=== PATIENT | male | born 2000 | race Caucasian/White ===

== ENCOUNTER 2023-02-17 20:14 | Emergency (ER) | payer OTHER ==
[~2023-02-17] VITALS: Ht 180.3 cm; Wt 71.0 kg
[2023-02-17 20:43] LABS: BASOPHILS % (AUTO) 0 % (0-10); EOSINOPHILS # (AUTO) 0.1 10^3/uL (0.0-0.3); EOSINOPHILS % (AUTO) 1 % (0-10); HEMATOCRIT 47 % (40-54); HEMOGLOBIN 16.3 g/dL (13.3-17.7); LYMPHOCYTES # (AUTO) 0.8 10^3/uL (1.0-4.0); LYMPHOCYTES % (AUTO) 6 % (12-44); MEAN CORPUSCULAR HEMOGLOBIN 30 pg (25-34); MEAN CORPUSCULAR HGB CONC 35 g/dL (32-36); MEAN CORPUSCULAR VOLUME 86 fL (80-99); MEAN PLATELET VOLUME 9.3 fL (9.0-12.2); MONOCYTES # (AUTO) 0.6 10^3/uL (0.0-1.0); MONOCYTES % (AUTO) 4 % (0-12); NEUTROPHILS # (AUTO) 12.8 10^3/uL (1.8-7.8); NEUTROPHILS % (AUTO) 89 % (42-75); PLATELET COUNT 267 10^3/uL (130-400); WHITE BLOOD COUNT 14.4 10^3/uL (4.3-11.0)
[2023-02-17] MEDS ORDERED: NS IV 1000 ML 1,000 ML IV SCH (20:45)
[2023-02-17] MEDS ORDERED: KETOROLAC INJ 30 MG/ML VIAL IVP ONE (20:45)
--- NOTE | 2023-02-17 20:48 | ED Abdominal Pain ---
General Chief Complaint: Abdominal/GI Problems Stated Complaint: ABD PAIN, LWR BACK PAIN, FEVER Nursing Triage Note: PT ARRIVED POV WITH CC OF LOWER ABD PAIN THAT STARTED THIS AM WHEN HE WOKE UP. PT STATES THAT HE WAS SEEN AT [facility] AND HAD AN ELEVATED TEMP OF 100.5. Source of Information: Patient Exam Limitations: No Limitations (TEODORA LAND) History of Present Illness Date Seen by Provider: Feb 17, 2023 Time Seen by Provider: 20:44 Initial Comments Patient is a 22-year-old male who presents to the ED abdominal pain nausea dehydration. Patient states symptoms started today early this morning. Patient patient reports left-sided abdominal pain and epigastric abdominal pain. Pain is described as sharp. Pain does not radiate. Worse with movement. Reports a temperature 100.5. Patient states he feels dehydrated. Reports chills fatigue weakness. Has not been eating or drinking as much today. Did take Tylenol earlier today after going to the clinic at [facility]. Due to the worsening abdominal pain he wanted to get evaluated. He did have 2 episodes of diarrhea without any blood or mucus. Nausea without vomiting. No history of previous abdominal surgery. Denies of any pain with urination frequent urination, dark urine. Denies chest pain short of breath cough ear pain neck p ain. No known family history of inflammatory bowel disease. (TEODORA LAND) Allergies and Home Medications Allergies Coded Allergies: No Known Drug Allergies (Unverified , 02/17/23) Patient Home Medication List Home Medication List Reviewed: Yes (TEODORA LAND) Ciprofloxacin HCl (Ciprofloxacin HCl) 500 Mg Tablet, 500 MG PO BID Prescribed by: ALISA TRUJILLO on 02/17/232152 Ondansetron (Ondansetron Odt) 4 Mg Tab.rapdis, 4 MG SL Q4H PRN for NAUSEA/V OMITING Prescribed by: ALISA TRUJILLO on 02/17/232245 Review of Systems Review of Systems Constitutional: No chills, No diaphoresis, No malaise, No weakness EENTM: No Double Vision, No Eye Pain Respiratory: Denies Cough, Denies Orthopnea Cardiovascular: Denies Chest Pain Gastrointestinal: Abdominal Pain, Diarrhea, Nausea; Denies Vomiting Genitourinary: Denies Burning, Denies Discharge, Denies Drainage, Denies Frequency, Denies Flank Pain Musculoskeletal: No back pain, No joint pain Skin: No change in hair/nails (TEODORA LAND) All Other Systems Reviewed Negative Unless Noted: Yes (TEODORA LAND) Past Axnraqi-Fqjwhl-Kvvfyy Hx Patient Social History Tobacco Use?: No Substance use?: No Alcohol Use?: Yes Alcohol Frequency: Once in a while (TEODORA LAND) Physical Exam Vital Signs Vital Signs - First Documented 02/17/23 20:26 Temp 37.0 Pulse 92 B/P (MAP) 122/86 (98) Pulse Ox 99 O2 Delivery Room Air (MIGUELANGEL SAWYER DO) Vital Signs Capillary Refill : (TEODORA LAND) Height/Weight/BMI Height: '" Weight: lbs. oz. kg; 21.00 BMI Method: General Appearance: WD/WN, no apparent distress HEENT: PERRL/EOMI, normal ENT inspection, TMs normal, pharynx normal Neck: non-tender, full range of motion, supple Respiratory: chest non-tender, lungs clear, normal breath sounds, no respiratory distress, no accessory muscle use Cardiovascular: regular rate, rhythm, no edema, no gallop, no JVD Gastrointestinal: normal bowel sounds, soft, no organomegaly, tenderness (Left lower quadrant tenderness, epigastric tenderness.) Extremities: normal range of motion, non-tender, normal inspection, no pedal edema Back: normal inspection, no CVA tenderness 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, no motor/sensory deficits, alert, normal mood/affect, oriented x 3 Skin: normal color, warm/dry (TEODORA LAND) Progress/Results/Core Measures Results/Orders Lab Results Laboratory Tests Test 02/17/23 20:30 02/17/23 21:30 Range/Units White Blood Count 14.4 H 4.3-11.0 10^3/uL Red Blood Count 5.50 4.30-5.52 10^6/uL Hemoglobin 16.3 13.3-17.7 g/dL Hematocrit 47 40-54 % Mean Corpuscular Volume 86 80-99 fL Mean Corpuscular Hemoglobin 30 25-34 pg Mean Corpuscular Hemoglobin Concent 35 32-36 g/dL Red Cell Distribution Width 11.9 10.0-14.5 % Platelet Count 267 130-400 10^3/uL Mean Platelet Volume 9.3 9.0-12.2 fL Immature Granulocyte % (Auto) 0 % Neutrophils (%) (Auto) 89 H 42-75 % Lymphocytes (%) (Auto) 6 L 12-44 % Monocytes (%) (Auto) 4 0-12 % Eosinophils (%) (Auto) 1 0-10 % Basophils (%) (Auto) 0 0-10 % Neutrophils # (Auto) 12.8 H 1.8-7.8 10^3/uL Lymphocytes # (Auto) 0.8 L 1.0-4.0 10^3/uL Monocytes # (Auto) 0.6 0.0-1.0 10^3/uL Eosinophils # (Auto) 0.1 0.0-0.3 10^3/uL Basophils # (Auto) 0.0 0.0-0.1 10^3/uL Immature Granulocyte # (Auto) 0.1 0.0-0.1 10^3/uL Sodium Level 138 135-145 MMOL/L Potassium Level 3.3 L 3.6-5.0 MMOL/L Chloride Level 105 98-107 MMOL/L Carbon Dioxide Level 20 L 21-32 MMOL/L Anion Gap 13 5-14 MMOL/L Blood Urea Nitrogen 15 7-18 MG/DL Creatinine 0.91 0.60-1.30 MG/DL Estimat Glomerular Filtration Rate 124 BUN/Creatinine Ratio 16 Glucose Level 105 70-105 MG/DL Calcium Level 9.7 8.5-10.1 MG/DL Corrected Calcium 8.5-10.1 MG/DL Total Bilirubin 3.7 H 0.1-1.0 MG/DL Aspartate Amino Transf (AST/SGOT) 19 5-34 U/L Alanine Aminotransferase (ALT/SGPT) 16 0-55 U/L Alkaline Phosphatase 86 40-136 U/L C-Reactive Protein High Sensitivity 0.58 H 0.00-0.50 MG/DL Total Protein 8.0 6.4-8.2 GM/DL Albumin 4.7 H 3.2-4.5 GM/DL Lipase 13 8-78 U/L Urine Color YELLOW Urine Clarity CLEAR Urine pH 7.0 5-9 Urine Specific [place] 1.010 L 1.016-1.022 Urine Protein TRACE H NEGATIVE Urine Glucose (UA) NEGATIVE NEGATIVE Urine Ketones 1+ H NEGATIVE Urine Nitrite NEGATIVE NEGATIVE Urine Bilirubin NEGATIVE NEGATIVE Urine Urobilinogen 0.2 < = 1.0 MG/DL Urine Leukocyte Esterase NEGATIVE NEGATIVE Urine RBC (Auto) NEGATIVE NEGATIVE Urine RBC NONE /HPF Urine WBC RARE /HPF Urine Squamous Epithelial Cells NONE /HPF Urine Crystals NONE /LPF Urine Bacteria TRACE /HPF Urine Casts NONE /LPF Urine Mucus NEGATIVE /LPF Urine Culture Indicated NO (MIGUELANGEL SAWYER DO) Medications Given in ED Current Medications Medications Dose Ordered Sig/Elissa Route Start Time Stop Time Status Last Admin Dose Admin Iohexol 100 ml ONCE ONCE IV 02/17/23 21:00 02/17/23 21:01 DC 02/17/23 20:59 80 ML Ketorolac Tromethamine 30 mg ONCE ONCE IVP 02/17/23 20:45 02/17/23 20:46 DC 02/17/23 20:48 30 MG Sodium Chloride 100 ml ONCE ONCE IV 02/17/23 21:00 02/17/23 21:01 DC 02/17/23 20:59 80 ML (MIGUELANGEL SAWYER DO) Vital Signs/I&O 02/17/23 02/17/23 02/17/23 20:26 20:48 21:58 Temp 37.0 37.0 Pulse 92 107 B/P (MAP) 122/86 (98) 114/51 Pulse Ox 99 99 O2 Delivery Room Air Room Air 02/17/23 23:59 Intake Total 1000 ml Balance 1000 ml (MIGUELANGEL SAWYER DO) Blood Pressure Mean: 98 Departure Communication (PCP) Reviewed previous ER visits, H&P, lab testing. Differential diagnosis g astroenteritis, colitis, appendicitis. Patient afebrile. CBC, CMP, lipase urinalysis. No specific urinary symptoms. States he feels dehydrated. Was started on a liter of fluid. Patient received IV Zofran. Pain significantly improved. Tenderness to his epigastric left lower quadrant. No right upper quadrant or right lower quadrant tenderness suggesting acute appendicitis or acute cholecystitis. White blood count at 14. Potassium at 3.3. Did have a bilirubin of 3.7 with normal liver enzymes. will need to get evaluated for hereditary disorder or enzyme deficiency for the elevated bilirubin. CRP was 0.58. Normal lipase. Urinalysis without evidence infection. CT abdomen and pelvis suggestive of colitis and enteritis with possible gastritis given the distention of the stomach which is fluid filled. Discussed these results with patient. Did have 2 episodes of diarrhea today without any blood or mucus. Afebrile. differential diagnosis would be infectious, inflammatory, ischemic. More unlikely inflammatory or ischemic. No family history of inflammatory bowel disease. Infectious would be more of concern viral versus bacterial. Since patient is afebrile without any bloody diarrhea more than likely viral at this time. Patient is feeling much better at this time. Will treat more conservative. I will discharge Cipro to take if pain worsens in the next few days with developing fever or bloody stools. If viral usually symptoms will continue to be improving. Patient is a college student and trying to prevent multiple ER visits. Patient is otherwise healthy. If symptoms worsen with no improvement suggest stool culture. Denies eating anything different than his normal. No recent travels. No risk factors for C. difficile. Did discuss results with father. Recommend outpatient follow-up in the next week. If symptoms continue may need further GI follow-up for other etiologies. Will discharge with Mera. Discussed clear liquids for the next 4 to 5 days. Return back to ED if symptoms worsen. (TEODORA LAND) Impression Primary Impression: Colitis Disposition: 01 HOME, SELF-CARE Condition: Stable Departure-Patient Inst. Decision time for Depature: 21:51 (TEODORA LAND) [place] [facility] [place] Instructions: Colitis (DC) Add. Discharge Instructions: Take antibiotics as prescribed. Recommend drinking clear liquids. Alternate Tylenol ibuprofen for pain. If any worsening abdominal pain vomiting diarrhea to return back to ED. All discharge instructions reviewed with patient and/or family. Voiced understanding. Scripts Ondansetron (Ondansetron Odt) 4 Mg Tab.rapdis 4 MG SL Q4H PRN for NAUSEA/VOMITING, #6 TAB Prov: TEODORA LAND 02/17/23 Ciprofloxacin HCl (Ciprofloxacin HCl) 500 Mg Tablet 500 MG PO BID for 5 Days, #10 TAB Prov: TEODORA LAND 02/17/23 ATTENDING PHYSICIAN NOTE: I WAS PHYSICALLY PRESENT ER PHYSICIAN, BUT I WAS NOT INVOLVED IN ANY DECISION MAKING OR ANY CARE OF THIS PATIENT AND I AM NOT COLLABORATING PHYSICIAN. (MIGUELANGEL SAWYER DO) TEODORA LAND Feb 17, 2023 20:48 MIGUELANGEL SAWYER DO Feb 18, 2023 00:12
[2023-02-17] MEDS ORDERED: NS 100 ML (IVPB) BAG IV ONE (21:00)
[2023-02-17] MEDS ORDERED: IOHEXOL 350 MG/ML 100 ML (OMNIPAQUE 350) VIAL IV ONE (21:00)
[2023-02-17] MEDS ORDERED: HOLD METFORMIN - RECEIVED CONTRAST 20 ML VIAL IV SCH (21:00)
[2023-02-17 21:02] LABS: ALANINE AMINOTRANSFERASE 16 U/L (0-55); ALBUMIN 4.7 GM/DL (3.2-4.5); ALKALINE PHOSPHATASE 86 U/L (40-136); BILIRUBIN,TOTAL 3.7 MG/DL (0.1-1.0); BUN/CREATININE RATIO 16; CALCIUM 9.7 MG/DL (8.5-10.1); CARBON DIOXIDE 20 MMOL/L (21-32); CHLORIDE 105 MMOL/L (98-107); CREATININE SERUM 0.91 MG/DL (0.60-1.30); GFR ESTIMATED 124; GLUCOSE 105 MG/DL (70-105); LIPASE 13 U/L (8-78); POTASSIUM 3.3 MMOL/L (3.6-5.0); SODIUM 138 MMOL/L (135-145)
--- NOTE | 2023-02-17 21:24 | Diagnostic Imaging Report ---
PROCEDURE: CT abdomen and pelvis with contrast. TECHNIQUE: Multiple contiguous axial images were obtained through the abdomen and pelvis after administration of intravenous contrast. Auto Exposure Controls were utilized during the CT exam to meet ALARA standards for radiation dose reduction. All CT scans use one or more of the following dose optimizing techniques: automated exposure control, MA and/or KvP adjustment based on patient size and exam type or iterative reconstruction. INDICATION: Lower abdominal pain since this morning. Fever. EXAMINATION: CT abdomen and pelvis with contrast 02/17/2023. FINDINGS: Lung bases clear. Stomach is distended and fluid-filled. No evidence for an obstructive process with fluid seen throughout dilated small bowel loops diffusely likely due to a diffuse enteritis. There is fluid throughout the colon as well consistent with colitis. The appendix is normal. There is no free fluid or free air. The gallbladder, liver and spleen normal. Kidneys unremarkable. Pancreas and adrenal glands unremarkable. There is no acute osseous abnormality. Sclerotic focus in both proximal femurs likely bone islands. No acute osseous abnormality. IMPRESSION: 1. Findings suggestive of colitis and enteritis with possible gastritis given the distention of the stomach which is fluid filled. No obstructive process seen at this time. 2. No free fluid or free air. Dictated by: Dictated on workstation # [id number]
[2023-02-17 21:46] LABS: BACTERIA,URINE TRACE /HPF; BILIRUBIN,URINE NEGATIVE (NEGATIVE); CLARITY,URINE CLEAR; COLOR,URINE YELLOW; GLUCOSE, URINE (UA) NEGATIVE (NEGATIVE); KETONES,URINE 1+ (NEGATIVE); LEUKOCYTE ESTERASE ,URINE NEGATIVE (NEGATIVE); NITRITE,URINE NEGATIVE (NEGATIVE); PROTEIN,URINE TRACE (NEGATIVE); WBC,URINE RARE /HPF
[2023-02-17] MEDS ORDERED: CIPR500T5 PO (21:53)
[2023-02-17 21:58] VITALS: BP 114/51
[2023-02-17] MEDS ORDERED: ONDA4TAB11 SL (22:46)
== END 2023-02-17 21:59 | disposition home or self-care (01) ==
LOC: ER 20:20
DX: K52.9 Noninfective gastroenteritis and colitis, unspecified (principal)
CPT/HCPCS: 36415; 74177; 80053; 81000; 83690; 85025; 86141